=== PATIENT | female | born 1960 | race African-American/Black ===

== ENCOUNTER 2024-11-15 07:41 | Outpatient (RCR) | payer MEDICAID, SELFPAY | END 2024-12-03 23:59 | disposition home or self-care (01) | LOC: SCTC 07:41 | PROVIDERS: PCP Nurse Practitioner Family; Referring Provider Nurse Practitioner Family; Visit Provider Nurse Practitioner Family | DX: N63.20 Unspecified lump in the left breast, unspecified quadrant (principal); N63.10 Unspecified lump in the right breast, unspecified quadrant; Z80.3 Family history of malignant neoplasm of breast; Z80.7 Family history of other malignant neoplasms of lymphoid, hematopoietic and related tissues; R10.84 Generalized abdominal pain; R14.0 Abdominal distension (gaseous); Z87.891 Personal history of nicotine dependence; E66.9 Obesity, unspecified; Z68.36 Body mass index [BMI] 36.0-36.9, adult | CPT/HCPCS: 99213; G0463 ==

== ENCOUNTER → 2024-12-29 | Outpatient (CLI) | payer MEDICAID, SELFPAY ==
--- NOTE | 2024-12-29 15:30 | XR_ITS ---
Examination: CT abdomen, without intravenous contrast. CT pelvis, without intravenous contrast. CT abdomen, with intravenous contrast. CT pelvis, with intravenous contrast. 2-D sagittal coronal reconstructions. Date and time of exam:December 29, 2024, 1615 hours. INDICATIONS: Diagnosis family history malignant neoplasm, patient has generalized abdominal pain distention 2 years CTDI: vol (mGy) 29.9 DLP: (mGycm) 1679 Technique: Multiple 3.0 axial images of the abdomen and pelvis without intravenous contrast, 3.0 mm slice thickness. Multiple 3.0 postcontrast images abdomen and pelvis also obtained, post intravenous injection 60 cc Isovue 370 2-D sagittal and coronal reconstructions. Low dose protocols were performed. One or more of the following dose reduction techniques were used; automated exposure control, adjustment of the mA and/or KV according to patient size, use of iterative reconstruction technique. Findings: Liver is mildly irregular in contour, no focal liver lesions Spleen is not enlarged Absent gallbladder No pancreatic or adrenal mass. No renal or ureteral calculi, no hydronephrosis Normal appendix Colonic diverticulosis, no diverticulitis Contracted urinary bladder Absent uterus No pelvic mass Transpedicular lumbar fusion L4-S1 with anatomic alignment Moderate osteopenia IMPRESSION: No renal or ureteral calculi, no hydronephrosis Normal appendix No abdominal or pelvic lymphadenopathy No abdominal or pelvic mass
--- NOTE | 2024-12-29 16:00 | XR_ITS ---
Examination: CT chest, without intravenous contrast. Sagittal and coronal 2-D reconstructions. Exam date and time: December 29, 2024 1543 hours INDICATIONS: Smoking history 30 years CTDI:vol (mGy) 12.5 DLP: (mGycm) 6 Technique: Multiple 3.0 mm axial sections of the chest to been obtained. Bone and lung density settings are obtained. Sagittal and coronal 2-D reconstructions have been obtained. Low dose protocols were performed. One or more of the following dose reduction techniques were used; automated exposure control, adjustment of the mA and/or KV according to patient size, use of iterative reconstruction technique. Findings: 11 mm circumscribed nodule left breast 24 mm nodule indistinct margins medial left breast No thoracic aortic aneurysmal dilatation No paratracheal tracheobronchial or bronchopulmonary adenopathy No pneumonia, pulmonary edema or pleural disease No visualized liver or splenic lesion IMPRESSION: Nodules left breast including 24 mm nodule indistinct margins medial left breast, recommend diagnostic mammography, bilateral breast sonography follow-up
== END | disposition home or self-care (01) ==
PROVIDERS: PCP Nurse Practitioner Family; Referring Provider Nurse Practitioner Family; Visit Provider Nurse Practitioner Family
DX: N63.20 Unspecified lump in the left breast, unspecified quadrant (principal); Z80.9 Family history of malignant neoplasm, unspecified
CPT/HCPCS: 71250; 74178; A4649; Q9967

== ENCOUNTER 2025-01-02 13:55 | Outpatient (RCR) | payer MEDICAID, SELFPAY | END 2025-01-02 23:59 | disposition home or self-care (01) | LOC: SCTC 13:55 | PROVIDERS: PCP Nurse Practitioner Family; Referring Provider Nurse Practitioner Family; Visit Provider Nurse Practitioner Family | DX: N60.09 Solitary cyst of unspecified breast (principal); N63.20 Unspecified lump in the left breast, unspecified quadrant; Z80.7 Family history of other malignant neoplasms of lymphoid, hematopoietic and related tissues; M85.80 Other specified disorders of bone density and structure, unspecified site; R14.0 Abdominal distension (gaseous); Z87.891 Personal history of nicotine dependence | CPT/HCPCS: 99212; G0463 ==

== ENCOUNTER → 2025-01-21 | Outpatient (CLI) | payer MEDICAID, SELFPAY ==
[2025-01-16 10:02] LABS: Basophils # (Auto) 0.0 Thou/mm3 (0.0-0.2); Basophils % (Auto) 0 % (0-2.5); Eosinophils # (Auto) 0.2 Thou/mm3 (0.0-0.5); Eosinophils % (Auto) 2 % (0-10); Hematocrit 41.8 % (36.0-46.0); Hemoglobin 13.9 g/dL (12.0-16.0); Immature Granulocytes Auto 0.04 Thou/mm3 (0.00-0.00); Lymphocytes # (Auto) 3.0 Thou/mm3 (1.0-4.8); Lymphocytes % (Auto) 30 % (10-50); Mean Corpuscular HGB Conc 33.3 g/dl (31.0-37.0); Mean Corpuscular Hemoglobin 28.2 pg (25.0-35.0); Mean Corpuscular Volume 85 fL (80-100); Monocytes # (Auto) 0.9 Thou/mm3 (0.0-0.8); Monocytes % (Auto) 9 % (0-12); Neutrophils # (Auto) 5.7 Thou/mm3 (1.8-7.7); Neutrophils % (Auto) 58 % (37-80); Nucleated Red Blood Cell # 0.00 Thou/mm3 (0.00-0.00); Nucleated Red Blood Cell % 0 /100 WBC (0); Platelet Count 266 Thou/mm3 (140-440); RDW Standard Deviation 53.6 fL (36.4-46.3); Red Blood Count 4.93 Miln/mm3 (4.00-5.20); White Blood Count 9.9 Thou/mm3 (3.6-11.0)
[2025-01-16 10:20] LABS: Alanine Aminotransferase 14 U/L (10-49); Albumin, Serum 4.1 gm/dL (3.4-4.8); Albumin/Globulin Ratio 1.3 (1.2-2.2); Alkaline Phosphatase 59 U/L (46-116); Anion Gap 10 (7-16); Aspartate Amino Transferase 16 U/L (0-34); BUN/Creatinine Ratio 14 Ratio (12-20); Bilirubin,Total 0.9 mg/dL (0.3-1.2); Blood Urea Nitrogen 14 mg/dL (9-23); Calcium 9.1 mg/dL (8.3-10.6); Calcium (Corrected) 9.1 mg/dL (8.5-10.1); Carbon Dioxide 27.7 mMol/L (20.0-31.0); Chloride 107 mMol/L (98-107); Creatinine (Component) 1.0 mg/dL (0.6-1.3); Globulin 3.1 gm/dL (2.3-3.5); Glucose 113 mg/dL (74-106); Osmolality,Calculated 290 (275-295); Potassium 3.6 mMol/L (3.4-5.1); Sodium 145 mMol/L (136-145); Total Protein 7.2 gm/dL (5.7-8.2); eGFR > 60 See Note
--- NOTE | 2025-01-21 15:45 | XR_ITS ---
Examination: MRI breasts with without contrast, bilateral Date and time: January 21, 2025 1542 hours INDICATIONS: Family history malignant neoplasm breast, patient states lumps in the breast several years, sister TECHNIQUE AND FINDINGS: Bilateral breast MRI images pre and post intravenous administration 19 cc gadolinium Moderate heterogeneous breast architecture with mild to moderate background breast enhancement Circumscribed 18 mm nodule lateral right breast 30 mm circumscribed nodule medial left breast 16 mm circumscribed nodule retroareolar region left breast Numerous monitor circumscribed nodules Multiple left axillary lymph nodes, the largest 8 mm No breast skin thickening No nipple inversion No chest wall lesions IMPRESSION:: BI-RADS Category 0: Incomplete: Need additional imaging evaluation Bilateral circumscribed nodules as above with mildly enlarged left axillary lymph nodes, recommend diagnostic mammography and bilateral breast sonography follow-up
== END | disposition home or self-care (01) ==
LOC: SCTO 01-16 11:57 → SMRI 14:39
PROVIDERS: PCP Nurse Practitioner Family; Referring Provider Nurse Practitioner Family; Visit Provider Nurse Practitioner Family
DX: R59.0 Localized enlarged lymph nodes (principal); N63.20 Unspecified lump in the left breast, unspecified quadrant; N63.10 Unspecified lump in the right breast, unspecified quadrant; N63.42 Unspecified lump in left breast, subareolar
CPT/HCPCS: 36415; 77049; 80053; 85025; A9579; C8908

== ENCOUNTER 2025-02-02 10:10 | Outpatient (RCR) | payer MEDICAID, SELFPAY | END 2025-02-02 23:59 | disposition home or self-care (01) | LOC: SCTC 10:10 | PROVIDERS: PCP Nurse Practitioner Family; Referring Provider Nurse Practitioner Family; Visit Provider Nurse Practitioner Family | DX: N63.20 Unspecified lump in the left breast, unspecified quadrant (principal); N63.10 Unspecified lump in the right breast, unspecified quadrant; Z80.9 Family history of malignant neoplasm, unspecified; R59.0 Localized enlarged lymph nodes; M85.80 Other specified disorders of bone density and structure, unspecified site; K29.70 Gastritis, unspecified, without bleeding; Z87.891 Personal history of nicotine dependence | CPT/HCPCS: 99212; G0463 ==

== ENCOUNTER → 2025-02-21 | Outpatient (CLI) | payer MEDICAID, SELFPAY ==
--- NOTE | 2025-02-21 13:20 | XR_ITS ---
Examination: Bone densitometry Date and time of exam:February 21, 2025 1342 hours INDICATIONS: Hysterectomy age 34 Technique: Lumbar spine and hip total bone mineralization values of an calculated. Peak reference and age match control results have been displayed. Findings: Lumbar spine total bone mineralization is0.954 gm/cm2. This is 1.1 standard deviations below peak reference. This is 0.5 standard deviations above age-matched controls. Hip total bone mineralization is 0.932 gm/cm2 This is 0.6 standard deviations below peak reference. This is 0.2 standard deviations above age-matched controls Impression: There is osteopenia based on lumbar spine measurements. There is osteopenia based on hip measurements
== END | disposition home or self-care (01) ==
PROVIDERS: PCP Nurse Practitioner Family; Referring Provider Nurse Practitioner Family; Visit Provider Nurse Practitioner Family
DX: M85.89 Other specified disorders of bone density and structure, multiple sites (principal)
CPT/HCPCS: 77080

== ENCOUNTER → 2025-03-13 | Outpatient (CLI) | payer MEDICAID, SELFPAY ==
--- NOTE | 2025-03-13 12:30 | XR_ITS ---
Examination: Breast ultrasound complete, bilateral Date and time of exam: March 13, 2025 1349 hours INDICATIONS: Bilateral breast pain and lumps for years, strong family history, sister, breast cancer, breast MRI January 21, 2025 bilateral breast nodules Technique: Real-time grayscale ultrasonographic imaging bilateral breasts, including all 4 quadrants as well as nipple retroareolar and axillary regions. Findings: Sonographic images right breast 9:00 cyst 14 x 12 mm Smaller cysts Sonographic images left breast 2:00 round nodule complex cyst versus mass 9 x 9 mm 7:00 cyst 17 x 14 mm 9:00 cyst 25 x 23 mm IMPRESSION: BI-RADS Category 3: Probably benign findings One additional 6 month left breast sonogram follow-up is needed to document stability of 2:00 cystic solid nodule 9 x 8 x 9 mm
--- NOTE | 2025-03-13 13:30 | XR_ITS ---
Examination: Diagnostic digital mammography, bilateral Computer aided detection 3-D breast Tomosynthesis, bilateral Date and time of exam: March 13, 2025 1402 hours, comparison MRI breasts January 21, 2022 INDICATIONS: Bilateral breast nodules on MRI breast 01/21/2025, strong family history breast cancer, sister Technique: Nonmagnified MLO, CC views of the breasts to been obtained, reconstructed from 3-D Tomosynthesis images. R2 computer aided detection program utilized for evaluation of suspicious masses and/or abnormal calcifications. 3-D Tomosynthesis images obtained. Findings: The breasts are heterogeneously dense, which may obscure small masses Multiple partially circumscribed nodules right breast, including 15 mm upper outer right breast, 11 mm upper outer right breast, 6 mm 9 mm 12:00 position left breast Multiple circumscribed nodules left breast, including 28 mm nodule 9:00 position, 11 mm nodule upper outer left breast This nodule has grouped microcalcifications 10 mm nodule with more indistinct margins upper left breast on the MLO view Impression: BI-RADS Category 0: Incomplete: Need additional imaging evaluation Recommend follow-up magnification spot compression films of calcifications, grouped in the upper outer left breast Recommend repeat breast sonography with the radiologist in attendance.
== END | disposition home or self-care (01) ==
LOC: CDIM 13:28
PROVIDERS: PCP Nurse Practitioner Family; Referring Provider Nurse Practitioner Family; Visit Provider Nurse Practitioner Family
DX: N63.21 Unspecified lump in the left breast, upper outer quadrant (principal); R92.1 Mammographic calcification found on diagnostic imaging of breast; R92.8 Other abnormal and inconclusive findings on diagnostic imaging of breast; Z80.9 Family history of malignant neoplasm, unspecified
CPT/HCPCS: 76641; 77062; 77066; G0279

== ENCOUNTER 2025-03-22 10:43 | Outpatient (RCR) | payer MEDICAID, SELFPAY | END 2025-04-04 23:59 | disposition home or self-care (01) | LOC: SCTC 10:43 | PROVIDERS: PCP Nurse Practitioner Family; Referring Provider Nurse Practitioner Family; Visit Provider Nurse Practitioner Family | DX: M85.80 Other specified disorders of bone density and structure, unspecified site (principal); Z80.9 Family history of malignant neoplasm, unspecified; K29.70 Gastritis, unspecified, without bleeding; J44.9 Chronic obstructive pulmonary disease, unspecified; Z87.891 Personal history of nicotine dependence | CPT/HCPCS: 99212; G0463 ==

== ENCOUNTER 2025-04-25 10:49 | Outpatient (RCR) | payer MEDICAID, SELFPAY | END 2025-05-05 23:59 | disposition home or self-care (01) | LOC: SCTC 10:49 | PROVIDERS: PCP Internal Medicine; Referring Provider Internal Medicine Hematology & Oncology; Visit Provider Internal Medicine Hematology & Oncology | DX: M85.80 Other specified disorders of bone density and structure, unspecified site (principal); Z80.6 Family history of leukemia; K29.70 Gastritis, unspecified, without bleeding; J44.9 Chronic obstructive pulmonary disease, unspecified; I10 Essential (primary) hypertension; Z87.891 Personal history of nicotine dependence | CPT/HCPCS: 99212; G0463 ==

== ENCOUNTER → 2025-05-03 | Outpatient (CLI) | payer MEDICAID, SELFPAY ==
--- NOTE | 2025-05-03 09:00 | XR_ITS ---
Examination: Diagnostic digital mammography, unilateral, left Computer aided detection 3-D breast Tomosynthesis, unilateral Date and time of exam: May 03, 2025, 0907 hours INDICATIONS: Mammogram 03/13/2025 grouped microcalcifications upper outer left breast Technique: Nonmagnified MLO, CC views of the left breast have been obtained, reconstructed from 3-D Tomosynthesis images. R2 computer aided detection program utilized for evaluation of suspicious masses and/or abnormal calcifications. 3-D Tomosynthesis images obtained. Findings: The breast is heterogeneously dense, which may obscure small masses Grouped microcalcifications are confirmed upper outer left breast Impression: BI-RADS category 4: Suspicious for malignancy Suspicious microcalcifications confirmed upper outer left breast, biopsy needed to exclude breast carcinoma These calcifications are amenable to stereotactic breast biopsy for diagnosis
== END | disposition home or self-care (01) ==
LOC: CDIM 08:35
PROVIDERS: Referring Provider Nurse Practitioner Family; Visit Provider Nurse Practitioner Family
DX: R92.342 Mammographic extreme density, left breast (principal); R92.0 Mammographic microcalcification found on diagnostic imaging of breast; Z80.9 Family history of malignant neoplasm, unspecified
CPT/HCPCS: 77061; 77065; G0279

== ENCOUNTER → 2025-05-19 | Outpatient (CLI) | payer MEDICAID, SELFPAY ==
--- NOTE | 2025-05-19 11:00 | XR_ITS ---
Examination: Breast ultrasound, unilateral, left complete Date and time of exam: May 19, 2025, 1043 hours, comparison 03/13/2025 INDICATIONS: Mammogram 03/13/2025 multiple circumscribed nodules left breast including 28 mm nodule 9 o'clock position left breast 11 mm nodule upper outer left breast Grouped microcalcifications with 10 mm nodule upper left breast on the MLO view Technique: Real-time valiente scale ultrasonographic imaging performed left breast including all 4 quadrants as well as nipple retroareolar and axillary region. Findings: 2:00 nodule circumscribed 10 x 10 mm 7:00 cyst 22 x 24 mm Retroareolar cyst 13 x 18 mm Smaller cyst IMPRESSION: BI-RADS Category 3: Probably benign findings Recommend 1 additional 6-month left breast sonogram follow-up to document stability of 2:00 nodule left breast described above
== END | disposition home or self-care (01) ==
LOC: SDIM 10:38
PROVIDERS: PCP Nurse Practitioner Family; Referring Provider Nurse Practitioner Family; Visit Provider Nurse Practitioner Family
DX: N63.21 Unspecified lump in the left breast, upper outer quadrant (principal); Z80.9 Family history of malignant neoplasm, unspecified
CPT/HCPCS: 76641

== ENCOUNTER 2025-05-24 11:20 | Outpatient (RCR) | payer MEDICAID, SELFPAY | END 2025-06-04 23:59 | disposition home or self-care (01) | LOC: SCTC 11:20 | PROVIDERS: PCP Nurse Practitioner Family; Referring Provider Nurse Practitioner Family; Visit Provider Nurse Practitioner Family | DX: Z71.2 Person consulting for explanation of examination or test findings (principal); M85.80 Other specified disorders of bone density and structure, unspecified site; K29.70 Gastritis, unspecified, without bleeding; Z80.9 Family history of malignant neoplasm, unspecified; Z80.7 Family history of other malignant neoplasms of lymphoid, hematopoietic and related tissues; J44.9 Chronic obstructive pulmonary disease, unspecified; I10 Essential (primary) hypertension; Z87.891 Personal history of nicotine dependence | CPT/HCPCS: 99212; G0463 ==